=== PATIENT | female | born 1945 | race Caucasian/White ===

== ENCOUNTER 2016-09-22 08:33 | Outpatient (CLI) | payer MEDICARE, OTHER | END 2016-09-22 08:34 | disposition home or self-care (01) | DX: Z12.31 Encounter for screening mammogram for malignant neoplasm of breast (principal) ==

== ENCOUNTER 2017-08-19 09:34 | Outpatient (CLI) | payer MEDICARE, OTHER ==
[2017-08-19 19:11] LABS: ALBUMIN/GLOBULIN RATIO 1.2 (1.0-2.2); BILIRUBIN,TOTAL 0.7 mg/dL (0.2-1.0); BUN - BLOOD UREA NITROGEN 16 mg/dL (6-20); CALCIUM 9.8 mg/dL (8.5-10.3); CARBON DIOXIDE - CO2 28 mmol/L (21-32); CHLORIDE 105 mmol/L (101-111); CHOL/HDL RATIO 2.2 (<4.4); CHOLESTEROL 174 mg/dL; CREATININE 1.1 mg/dL (0.4-1.0); GFR - MDRD 49 (>89); GLUCOSE 107 mg/dL (70-100); HDL CHOLESTEROL 79 mg/dL; SODIUM 139 mmol/L (135-145); TOTAL PROTEIN 7.6 g/dL (6.7-8.2); TRIGLYCERIDES 82 mg/dL; VLDL CHOLESTEROL 16 mg/dL
[2017-08-19 19:50] LABS: BASOPHILS # (AUTO) 0.1 10^3/uL (0.0-0.1); BASOPHILS % (AUTO) 1.3 %; EOSINOPHILS # (AUTO) 0.2 10^3/uL (0.0-0.7); EOSINOPHILS % (AUTO) 3.3 %; HCT - HEMATOCRIT 44.2 % (37.0-47.0); HGB - HEMOGLOBIN 14.4 g/dL (12.0-16.0); LYMPHOCYTES # (AUTO) 1.9 10^3/uL (1.5-3.5); LYMPHOCYTES % (AUTO) 26.2 %; MEAN CORPUSCULAR HEMOGLOBIN 28.5 pg (27.0-31.0); MEAN CORPUSCULAR HGB CONC 32.6 g/dL (32.0-36.0); MEAN CORPUSCULAR VOLUME 87.7 fL (81.0-99.0); MEAN PLATELET VOLUME 11.3 fL (7.9-10.8); MONOCYTES # (AUTO) 0.6 10^3/uL (0.0-1.0); MONOCYTES % (AUTO) 8.1 %; NEUTROPHILS # (AUTO) 4.4 10^3/uL (1.5-6.6); NEUTROPHILS % (AUTO) 61.1 %; NUCLEATED RED BLOOD CELLS AUTO 0.1 /100WBC; RED BLOOD COUNT 5.04 10^6/uL (4.20-5.40); RED CELL DISTRIBUTION WIDTH 13.7 % (12.0-15.0); UNCORRECTED WHITE BLOOD COUNT 7.2 x10^3/uL; WHITE BLOOD COUNT 7.2 x10^3/uL (4.8-10.8)
== END 2017-08-19 09:35 | disposition home or self-care (01) ==
LOC: LAB.F 09:34
PROVIDERS: ATTEND Family Medicine
DX: M85.80 Other specified disorders of bone density and structure, unspecified site (principal); R73.02 Impaired glucose tolerance (oral); I10 Essential (primary) hypertension; E78.5 Hyperlipidemia, unspecified
CPT/HCPCS: 36415; 80053; 80061; 82306; 84443; 85025

== ENCOUNTER 2018-08-22 08:45 | Outpatient (CLI) | payer MEDICARE, OTHER ==
[2018-08-22 11:22] LABS: ALBUMIN 4.1 g/dL (3.2-5.5); ALBUMIN/GLOBULIN RATIO 1.2 (1.0-2.2); ALKALINE PHOSPHATASE 121 IU/L (42-121); ALT ALANINE AMINOTRANSFERASE 21 IU/L (10-60); AST ASPARTATE AMINOTRANSFERASE 21 IU/L (10-42); BUN - BLOOD UREA NITROGEN 24 mg/dL (6-20); CALCIUM 9.7 mg/dL (8.5-10.3); CARBON DIOXIDE - CO2 28 mmol/L (21-32); CHLORIDE 105 mmol/L (101-111); CHOL/HDL RATIO 2.1 (<4.4); CHOLESTEROL 172 mg/dL; GFR - MDRD 54 (>89); GLUCOSE 112 mg/dL (70-100); HDL CHOLESTEROL 82 mg/dL; LDL CHOLESTEROL,CALCULATED 76 mg/dL; LDL/HDL RATIO 0.9 (<4.4); SODIUM 139 mmol/L (135-145); TOTAL PROTEIN 7.4 g/dL (6.7-8.2); VLDL CHOLESTEROL 14 mg/dL
== END 2018-08-22 08:46 | disposition home or self-care (01) ==
LOC: LAB.F 08:45
PROVIDERS: ATTEND Internal Medicine
DX: E78.5 Hyperlipidemia, unspecified (principal); Z13.1 Encounter for screening for diabetes mellitus
CPT/HCPCS: 36415; 80053; 80061; 83036; 83721

== ENCOUNTER 2018-10-03 08:09 | Outpatient (CLI) | payer MEDICARE, OTHER ==
--- NOTE | 2018-10-03 09:25 | DEXA Report ---
Reason: ASYMPTOMATIC MENOPAUSAL STATE Procedure Date: 10/03/2018 Accession Number: [id number] / [id number] Procedure: DEX - Dexa Spine and/or Hip CPT Code: FULL RESULT: EXAM: Dexa Spine and/or Hip DATE: 10/03/2018 9:00 AM CLINICAL HISTORY: ASYMPTOMATIC MENOPAUSAL STATE TECHNIQUE: Dual energy x-ray absorptiometry (DXA) was performed on a [employer] System. Regions measured are the AP Spine, femoral neck, and if needed forearm. COMPARISON: None. In accordance with the International Society for Clinical Densitometry (ISCD) guidelines, data from previous exams may be reanalyzed using current recommendations and techniques. This is done to allow a more accurate basis for comparison with the current study. FINDINGS: The data for the lumbar spine is as follows: BMD (g/cm/cm) T-SCORE Z-SCORE REGION L1 0.811 -2.7 -1.8 L2 1.063 -1.1 -0.3 L3 1.261 0.5 1.3 L4 1.186 -0.1 0.7 TOTAL 1.104 -0.6 0.2 NOTE: All evaluable vertebrae are used for classification The data for the hip is as follows: BMD (g/cm/cm) T-SCORE Z-SCORE REGION Neck 0.803 -1.7 -0.4 TOTAL 0.831 -1.4 -0.4 NOTE: The femoral neck or total proximal femur, whichever is lowest, is used for classification. IMPRESSION: THE WHO CLASSIFICATION BASED ON THE INTERNATIONAL REFERENCE STANDARD IS OSTEOPENIA. THE FRACTURE RISK IS INCREASED. RECOMMENDATION: Patients with diagnosis of osteoporosis or osteopenia should have regular bone mineral density assessment. For those eligible for Medicare, routine testing is allowed once every 2 years. Testing frequency can be increased for patients who have rapidly progressing disease or for those who are receiving medical therapy to restore bone mass. COMMENT: World Health Organization (WHO) definitions for osteoporosis and osteopenia: NORMAL BMD: T-score at -1.0 or higher, fracture risk is low OSTEOPENIA BMD: T-score between -1.0 and -2.5, fracture risk is increased. OSTEOPOROSIS BMD: T-score at -2.5 or lower, fracture risk is high. National Osteoporosis Foundation recommends: 1. Obtain adequate dietary calcium (at least 1200 mg per day) and vitamin D (400-800 international units per day). 2. Participate, as appropriate, in regular weightbearing and muscle-strengthening exercise. 3. Avoid tobacco use and reduce alcohol and caffeine intake. 4. For more detailed information see the website at www.NOF.org.
== END 2018-10-03 08:10 | disposition home or self-care (01) ==
LOC: DI 08:09
PROVIDERS: ATTEND Internal Medicine
DX: M85.88 Other specified disorders of bone density and structure, other site (principal)
CPT/HCPCS: 77080

== ENCOUNTER 2018-10-03 08:14 | Outpatient (CLI) | payer MEDICARE, OTHER ==
--- NOTE | 2018-10-04 08:55 | Mammography Report ---
Reason: SCREENING MAMMO Procedure Date: 10/03/2018 Accession Number: [id number] / [id number] Procedure: VINCE - Screening Mammo w/Oswaldo CPT Code: FULL RESULT: EXAM: Screening Mammo w/Oswaldo DATE: 10/03/2018 9:25 AM CLINICAL HISTORY: Screening encounter. No reported risk factors. TECHNIQUE: Bilateral CC and MLO views were obtained. COMPARISON: 09/22/2016 through 01/06/2010. FINDINGS: The breasts demonstrate diffuse fatty replacement bilaterally. No suspicious masses, clustered microcalcifications, or regions of architectural distortion are identified. IMPRESSION: Negative examination RECOMMENDATION: Routine annual screening unless otherwise clinically indicated. BIRADS CATEGORY 1: Negative STANDARD QUALIFYING STATEMENTS: 1. This examination was not reviewed with the aid of Computer-Aided Detection (CAD). 2. A negative or benign imaging report should not preclude biopsy if clinically suspicious findings are present. 3. Dense breasts may obscure an underlying neoplasm. 4. This examination was reviewed with the aid of 3D breast imaging (tomosynthesis).
== END 2018-10-03 08:15 | disposition home or self-care (01) ==
LOC: DI 08:14
DX: Z12.31 Encounter for screening mammogram for malignant neoplasm of breast (principal)
CPT/HCPCS: 77063; 77067

== ENCOUNTER 2020-06-19 14:46 | Outpatient (CLI) | payer MEDICARE ==
--- NOTE | 2020-06-19 15:38 | Ultrasound Report ---
PROCEDURE: Duplex Ext Veins Left INDICATIONS: PAIN IN LT LOWER LIMB TECHNIQUE: Real-time imaging, as well as color and pulse Doppler interrogation, were performed of the lower extr emity deep veins from the inguinal ligament to the popliteal fossa. COMPARISON: None. FINDINGS: The deep veins are normally compressible, and free of intraluminal thrombus. Color and pu lse Doppler demonstrate normal phasic intraluminal flow. There is normal augmentation response to di stal compression maneuver. IMPRESSION: No sonographic evidence of DVT. No Gonzalez's cyst or other fluid collection in the poplite al fossa. Reviewed by: Ovidio Melvin MD on 06/19/2020 3:37 PM PDT Approved by: Ovidio Melvin MD on 06/19/2020 3:37 PM PDT Station ID: [id number]
== END 2020-06-19 14:47 | disposition home or self-care (01) ==
LOC: DI 14:46
PROVIDERS: ATTEND Physician Assistant
DX: M79.605 Pain in left leg (principal)

== ENCOUNTER 2020-09-30 09:33 | Outpatient (CLI) | payer MEDICARE ==
--- NOTE | 2020-09-30 18:43 | XRAY Report ---
PROCEDURE: Knee Standing LT INDICATIONS: SUSPECT OA/ ACUTE LEFT KNEE SWELLING AND PAIN TECHNIQUE: 3 views of the of the left knee. COMPARISON: None. FINDINGS: Bones: No acute fractures or dislocations. No suspicious bony lesions. Joint spaces appear normal with weightbearing. Moderate medial and patellofemoral compartment osteophytosis. Mild lateral compar tment osteophytosis. Soft tissues: No knee joint effusions. No suspicious soft tissue calcification. IMPRESSION: Tricompartmental osteoarthritis. Reviewed by: Soo Velez MD, PhD on 09/30/2020 5:42 PM [facility] Approved by: Soo Velez MD, PhD on 09/30/2020 5:42 PM [facility] Station ID: [id number]
== END 2020-09-30 09:34 | disposition home or self-care (01) ==
LOC: DI 09:33
PROVIDERS: ATTEND Family Medicine
DX: M17.12 Unilateral primary osteoarthritis, left knee (principal)

== ENCOUNTER 2023-01-18 08:18 | Emergency (ER) | payer MEDICARE ==
[2023-01-18 08:54] LABS: BASOPHILS # (AUTO) 0.1 10^3/uL (0.0-0.1); BASOPHILS % (AUTO) 0.8 %; EOSINOPHILS # (AUTO) 0.3 10^3/uL (0.0-0.7); HGB - HEMOGLOBIN 14.2 g/dL (12.0-16.0); LYMPHOCYTES # (AUTO) 1.6 10^3/uL (1.5-3.5); LYMPHOCYTES % (AUTO) 22.3 %; MEAN CORPUSCULAR HEMOGLOBIN 28.4 pg (27.0-31.0); MEAN CORPUSCULAR HGB CONC 32.3 g/dL (32.0-36.0); MEAN PLATELET VOLUME 12.1 fL (7.9-10.8); MONOCYTES # (AUTO) 0.6 10^3/uL (0.0-1.0); MONOCYTES % (AUTO) 8.6 %; NEUTROPHILS # (AUTO) 4.7 10^3/uL (1.5-6.6); PLT - PLATELET COUNT 186 10^3/uL (130-450); RED CELL DISTRIBUTION WIDTH 12.7 % (12.0-15.0); WHITE BLOOD COUNT 7.3 x10^3/uL (4.8-10.8)
--- NOTE | 2023-01-18 09:01 | XRAY Report ---
PROCEDURE: Chest 1 View X-Ray INDICATIONS: Chest Pain TECHNIQUE: One view of the chest was acquired. COMPARISON: None. FINDINGS: Surgical changes and devices: None. Lungs and pleura: No pleural effusions or pneumothorax. Lungs are clear. Mediastinum: Mediastinal contours appear normal. Heart size is normal. Bones and chest wall: No suspicious bony lesions. Overlying soft tissues appear unremarkable. IMPRESSION: No acute cardiopulmonary process. Reviewed by: Pravin Christian MD on 01/18/2023 9:00 AM PDT Approved by: Pravin Christian MD on 01/18/2023 9:00 AM PDT Station ID: [id number]
[2023-01-18 09:31] LABS: ALBUMIN 3.9 g/dL (3.2-5.5); ALBUMIN/GLOBULIN RATIO 1.2 (1.0-2.2); CALCIUM 9.7 mg/dL (8.5-10.3); CREATININE 0.9 mg/dL (0.4-1.0); POTASSIUM 3.7 mmol/L (3.5-5.0); TOTAL PROTEIN 7.2 g/dL (6.7-8.2)
[2023-01-18] MEDS ORDERED: ASPIRIN CHEW 81 MG TABLET PO STA (09:56)
--- NOTE | 2023-01-18 10:04 | ED Physician Documentation ---
PD HPI CHEST PAIN - Stated complaint Stated Complaint: CHEST PX - Chief complaint Chief Complaint: Cardiac - History obtained from History obtained from: Patient - Additional information Additional information: Patient is a 77-year-old female presenting for evaluation of chest pain that she noticed at 730 this morning after watering her plants. Patient states that she does not feel this was strenuous or exertional activity. She reports the pain started off on the right side of her chest and moved to the left and then into her throat. The pain lasted for 1 hour and has resolved. She has not had any further episodes. She denies any other recent episodes of chest pain. She does have a history of a previous MO 11 years ago with 1 stent. She sees a business process modeler through Dr. Domingo Villar. She denies any recent illness with fever, cough or congestion. She denies chest pain, back pain, nausea, vomiting or abdominal pain. She denies leg swelling or discomfort.Denies recent travel or immobilization. Review of Systems Constitutional: denies: Fever Cardiac: reports: Chest pain / pressure Respiratory: denies: Dyspnea GI: denies: Abdominal Pain : denies: Dysuria Musculoskeletal: denies: Back pain, Extremity swelling Neurologic: denies: Headache PD PAST MEDICAL HISTORY - Present Medications Home Medications: Ambulatory Orders Medication Instructions Recorded Confirmed Aspirin EC [Ecotrin] 81 mg PO DAILY 01/18/23 01/18/23 Carvedilol [Coreg] 6.25 mg ORAL BID 01/18/23 01/18/23 Lovastatin 20 mg PO DAILY 01/18/23 01/18/23 amLODIPine [Norvasc] 5 mg PO DAILY 01/18/23 01/18/23 - Allergies Allergies/Adverse Reactions: Allergies Allergy/AdvReac Type Severity Reaction Status Date / Time No Known Drug Allergies Allergy Verified 01/18/23 08:36 PD ED PE NORMAL - General General: Alert and oriented X 3, No acute distress, Well developed/nourished - HEENT HEENT: Atraumatic - Neck Neck: Supple, no meningeal sign - Cardiac Cardiac: RRR, No murmur, Strong equal pulses - Respiratory Respiratory: No respiratory distress, Clear bilaterally - Abdomen Abdomen: Soft, Non tender, Non distended - Extremities Extremities: No edema, No calf tenderness / cord - Neuro Neuro: Normal speech Results - Vitals Vitals: Vital Signs - 24 hr 01/18/23 01/18/23 01/18/23 08:32 08:52 10:19 Temperature 36.8 C Heart Rate 68 65 67 Respiratory 18 14 17 Rate Blood Pressure 188/86 H 206/73 H 182/64 H O2 Saturation 98 99 99 01/18/23 01/18/23 01/18/23 11:00 11:30 13:35 Temperature Heart Rate 64 66 71 Respiratory 15 14 17 Rate Blood Pressure 169/65 H 160/69 H 179/73 H O2 Saturation 99 99 98 Oxygen O2 Source Room air - EKG (time done) 0831 EKG releavant findings:: EKG personally interpreted by author of this note. Relevant findings are: Rate 64, normal sinus rhythm, no STEMI, no ST depressions, minimal T wave inversions in lead III Rate: Rate (enter#) (64) Rhythm: NSR Intervals: No: Prolonged QT Ischemia: No: ST elevation c/w ischemia, ST depression Compare to prior EKG: Old EKG unavailable - Labs Labs: Laboratory Tests 01/18/23 01/18/23 01/18/23 08:45 09:12 09:12 WBC 7.3 RBC 5.00 Hgb 14.2 Hct 44.0 MCV 88.0 MCH 28.4 MCHC 32.3 RDW 12.7 Plt Count 186 MPV 12.1 H Neut # (Auto) 4.7 Lymph # (Auto) 1.6 Talbot # (Auto) 0.6 Eos # (Auto) 0.3 Baso # (Auto) 0.1 Absolute Nucleated RBC 0.00 Nucleated RBC % 0.0 Sodium 139 Potassium 3.7 Chloride 107 Carbon Dioxide 25 Anion Gap 7.0 BUN 20 Creatinine 0.9 Estimated GFR (MDRD) 61 L Glucose 135 H Calcium 9.7 Total Bilirubin 1.0 AST 21 ALT 19 Alkaline Phosphatase 127 H Troponin I High Sens 6.3 Total Protein 7.2 Albumin 3.9 Globulin 3.3 Albumin/Globulin Ratio 1.2 Lipase 26 01/18/23 12:15 WBC RBC Hgb Hct MCV MCH MCHC RDW Plt Count MPV Neut # (Auto) Lymph # (Auto) Talbot # (Auto) Eos # (Auto) Baso # (Auto) Absolute Nucleated RBC Nucleated RBC % Sodium Potassium Chloride Carbon Dioxide Anion Gap BUN Creatinine Estimated GFR (MDRD) Glucose Calcium Total Bilirubin AST ALT Alkaline Phosphatase Troponin I High Sens 6.4 Total Protein Albumin Globulin Albumin/Globulin Ratio Lipase PD Medical Decision Making - ED course Complexity details: reviewed results, re-evaluated patient, d/w patient ED course: Patient is a 77-year-old female presenting for evaluation of chest pain. She does have a history of a prior stent. Her EKG is reassuring without signs of acute ischemia. She has been pain-free here. She has been ambulating without any further episodes.As she has been symptom-free here I do not feel pulmonary embolism or dissection are likely. She had 2 high-sensitivity troponins that were negative. I did consult with her business process modeler who does feel that she is stable for outpatient follow-up and an outpatient stress test. Her symptoms are not suggestive of unstable angina.Patient is counseled on strict return precautions. 1130 - Patient has been resting comfortably here without any further episodes of chest pain. She reports being able to ambulate to the bathroom without any difficulty.Discussed plan for repeat troponin at 1215 as well as consultation with her business process modeler. 1221 - Discussed with Dr. Lane, cardiology. Reviewed presentation, EKG and work-up.He understands that we are [facility] with limited abilities to perform stress test. We have ability to do Exercise and dobutamine stress test but not until tomorrow.He recommends that if the patient remains chest pain-free and second troponin is negative then patient can be discharged with plan for close outpatient follow-up and outpatient stress test. He will pass the message on to his nurse to be expecting the patient's call this afternoon. Departure - Departure Disposition: 01 Home, Self Care Clinical Impression: Chest pain Condition: Stable Instructions: ED Chest Pain Atypical Unkn Cause Follow-Up: Karl Lane MD [Physician No Access] - Comments: The exact cause of your chest pain is unclear and you likely need further test ing such as a stress test. Please call Dr. Lane's office today. They will help arrange for close follow-up and further testing. If at anytime your symptoms recur or you develop any new symptoms please return to the emergency department for evaluation. Discharge Date/Time: 01/18/23 13:25
[2023-01-18 13:37] VITALS: BP 179/73
== END 2023-01-18 13:25 | disposition home or self-care (01) ==
LOC: ED 08:18
DX: R07.89 Other chest pain (principal); I25.2 Old myocardial infarction
CPT/HCPCS: 36415; 71045; 80053; 83690; 84484; 85025; 93005; 99283; 99284; A9270

== ENCOUNTER 2023-05-07 07:27 | Emergency (ER) | payer MEDICARE ==
--- NOTE | 2023-05-07 07:39 | ED Physician Documentation ---
PD HPI LOWER EXT INJURY - Stated complaint Stated Complaint: R HIP PX - Chief complaint Chief Complaint: General - History obtained from History obtained from: Patient - History of Present Illness PD HPI LOW EXT INJURY LOCATION: Right, Hip Type of injury: Twist (she bent over to lift something and felt pain lateral right hip. Pain with walking and with palpation over greater trochanter area.) Where injury occurred: Home Timing - onset: How many days ago (3) Timing - details: Abrupt onset, Still present Worsened by: Moving, Palpating Associated symptoms: No: Weakness, Numbness, Discolored Similar symptoms before: Has not had sx before Review of Systems Constitutional: denies: Fever, Chills Skin: denies: Rash, Lesions Musculoskeletal: denies: Back pain Neurologic: denies: Focal weakness, Numbness PD PAST MEDICAL HISTORY - Past Medical History Cardiovascular: Hypertension, High cholesterol, Coronary artery disease, [place] Respiratory: None Neuro: None Endocrine/Autoimmune: None GI: None 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 : None HEENT: None Psych: None Musculoskeletal: Osteoarthritis Derm: None - Past Surgical History Past Surgical History: Yes Ortho: Knee replacement - Present Medications Home Medications: Ambulatory Orders Medication Instructions Recorded Confirmed Aspirin EC [Ecotrin] 81 mg PO DAILY 01/18/23 05/07/23 Lovastatin 20 mg PO DAILY 01/18/23 05/07/23 amLODIPine [Norvasc] 5 mg PO DAILY 01/18/23 05/07/23 carvediloL [Coreg] 6.25 mg ORAL BID 01/18/23 05/07/23 Lidocaine Patch 5% [Lidoderm Patch] 1 patch TOP DAILY PRN #10 patch 05/07/23 Meloxicam [Mobic] 7.5 mg PO BID 10 Days #20 tablet 05/07/23 - Allergies Allergies/Adverse Reactions: Allergies Allergy/AdvReac Type Severity Reaction Status Date / Time No Known Drug Allergies Allergy Verified 01/18/23 08:36 - Social History Does the pt smoke?: No Smoking Status: Former smoker Does the pt drink ETOH?: No Does the pt have substance abuse?: No - Immunizations Immunizations are current?: Yes PD ED PE NORMAL - Vitals Vital signs reviewed: Yes - General General: Alert and oriented X 3, No acute distress, Well developed/nourished - Derm Derm: Normal color, Warm and dry - Extremities Extremities: Other (lateral right hip over greater trochanter with local tenderness. No redness, warmth nor skin lesions. Medial hip/inguinal area not tender. Passive rotation and impaction of hip without ball area pain. ) - Neuro Neuro: Alert and oriented X 3, No motor deficit, No sensory deficit, Normal speech Results - Vitals Vitals: Oxygen O2 Source Room air - Rads (name of study) right hip Relevant Findings:: Prelim report reviewed, EMP independent interpretation of test (no fractures) PD Medical Decision Making - ED course Complexity details: reviewed results (negative xray. Symptoms and mechanism c/w strain at trochanteric insertion for muscle (IT band). ), considered differential (pain at greater trochanter and negative xray. I feel this is adequate imaging. Local injection with Kenalog and lidocaine done for patient without problems. ), d/w patient Departure - Departure Disposition: 01 Home, Self Care Clinical Impression: Strain of muscle of right hip Qualifiers: Encounter type: initial encounter Qualified Code(s): S76.011A - Strain of muscle, fascia and tendon of right hip, initial encounter Condition: Stable Record reviewed to determine appropriate education?: Yes Instructions: ED Strain Muscle Ext Follow-Up: [facility] [Provider Group] Prescriptions: Lidocaine Patch 5% [Lidoderm Patch] 1 patch TOP DAILY PRN #10 patch PRN Reason: pain Meloxicam [Mobic] 7.5 mg PO BID 10 Days #20 tablet Comments: This sounds like a strain of the muscle to the outside part of the hip. There is some tendon attachments and muscle attachments at that point and a small cushion called a bursa as well. I did do a injection in the muscle area (not in the hip joint itself) with a steroid medicine along with some lidocaine. Hopefully this will help through today in the next couple of days. Continue with heat to the area periodically. You can use a lidocaine patch externally over the area as well. Use some oral anti-inflammatories. I wrote a prescription for meloxicam which is a longer half-life so he only have to take it twice a day. Still take it with food. To that add Tylenol every 4-6 hours if needed for pains. I would anticipate trending better over the next several days and resolved by a week or so. Follow-up with your primary care or orthopedic clinic if not improving in that timeframe. I sent your prescriptions to [facility] pharmacy. Forms: PCP List Discharge Date/Time: 05/07/23 09:14
[2023-05-07 07:45] VITALS: BP 180/61; O2SAT 99
[2023-05-07] MEDS ORDERED: TRIAMCINOLONE 40 MG/ML VIAL MC STA (07:52)
--- NOTE | 2023-05-07 08:35 | XRAY Report ---
PROCEDURE: Hip w/Pelvis 2-3V RT INDICATIONS: twisting mechanism/ pain lateral trochanter TECHNIQUE: AP pelvis with lateral view of the right hip. COMPARISON: None. FINDINGS: Bones: No acute fractures or dislocations, although fine bony detail is obscured by dense superimpos ed soft tissues. No suspicious bony lesions. Moderate degenerative changes of the sacroiliac joint s bilaterally. Mild degenerative changes of the pubic symphysis and bilateral hips. Degenerative kyle ges also seen in the included spine. Soft tissues: No suspicious soft tissue calcifications or masses. IMPRESSION: No acute osseous abnormality. If there is clinical concern or persistent symptoms, additional imaging such as CT or MRI may be helpful for further evaluation. Reviewed by: Taiwo Chino MD on 05/07/2023 8:34 AM PDT Approved by: Taiwo Chino MD on 05/07/2023 8:34 AM PDT Station ID: [id number]
== END 2023-05-07 09:14 | disposition home or self-care (01) ==
LOC: ED 07:27
DX: S76.011A Strain of muscle, fascia and tendon of right hip, initial encounter (principal); X50.1XXA Overexertion from prolonged static or awkward postures, initial encounter; I10 Essential (primary) hypertension; E78.00 Pure hypercholesterolemia, unspecified; I25.10 Atherosclerotic heart disease of native coronary artery without angina pectoris; Z79.82 Long term (current) use of aspirin; Z79.899 Other long term (current) drug therapy; Z87.891 Personal history of nicotine dependence
CPT/HCPCS: 20552; 99284

== ENCOUNTER 2023-06-09 08:00 | Outpatient (CLI) | payer MEDICARE | END 2023-06-09 23:59 | disposition home or self-care (01) | LOC: LAB 08:00 | PROVIDERS: ATTEND Urology | DX: R31.9 Hematuria, unspecified (principal) | CPT/HCPCS: 87077; 87086; 87181 ==